=== PATIENT | female | born 1965 | race Caucasian/White ===

== ENCOUNTER → 2016-08-27 | Outpatient (CLI) | payer OTHER ==
[~2016-08-27] MED LIST: CEFTIN500 MG PO; TIROSINT112 MCG PO; TRI-LEVLEN 281 TAB PO; [UNRECOGNIZED DRUG - SUPPLY]
== END ==
LOC: COL.RAD 14:32
DX: M79.661 Pain in right lower leg (principal); M79.89 Other specified soft tissue disorders

== ENCOUNTER → 2016-11-25 | Outpatient (CLI) | payer OTHER | LOC: MC.RAD 08:35 | DX: Z12.31 Encounter for screening mammogram for malignant neoplasm of breast (principal) ==

== ENCOUNTER → 2018-02-17 | Outpatient (CLI) | payer OTHER | LOC: MC.RAD 11:38 | DX: Z12.31 Encounter for screening mammogram for malignant neoplasm of breast (principal) ==

== ENCOUNTER 2018-11-23 18:55 | Emergency (ER) | payer OTHER ==
[~2018-11-23] VITALS: Ht 165.1 cm; Wt 69.1 kg
[2018-11-23 19:00] VITALS: PULSE 105; TEMP 98.7
[2018-11-23 19:17] LABS: COLLECTION METHOD CLEAN CATCH
[2018-11-23 19:25] LABS: PH 6 (5-8); SQUAMOUS EPITHELIAL 0-2 /hpf; URINE APPEARANCE Clear; URINE BACTERIA None Seen /hpf; URINE BILIRUBIN Negative (NEGATIVE); URINE BLOOD Negative (NEGATIVE); URINE COLOR Yellow; URINE GLUCOSE 2+ (NEGATIVE); URINE KETONE 2+ (NEGATIVE); URINE LEUKOCYTE ESTERASE Negative (NEGATIVE); URINE NITRATE Negative (NEGATIVE); URINE PROTEIN(semi-quant) Negative (NEGATIVE); URINE RBC 0-2 /hpf; URINE UROBILINOGEN Negative (NEGATIVE)
== END 2018-11-23 19:30 | disposition left against medical advice (07) ==
LOC: COL.ER 18:55
PROVIDERS: Family Medicine
DX: N39.0 Urinary tract infection, site not specified (principal)

== ENCOUNTER → 2019-02-22 | Outpatient (CLI) | payer OTHER | LOC: MC.RAD 09:52 | DX: Z12.31 Encounter for screening mammogram for malignant neoplasm of breast (principal) ==

== ENCOUNTER → 2020-02-25 | Outpatient (CLI) | payer OTHER | LOC: MC.RAD 10:18 | DX: Z12.31 Encounter for screening mammogram for malignant neoplasm of breast (principal) ==

== ENCOUNTER → 2021-04-14 | Outpatient (CLI) | payer OTHER | LOC: MC.RAD 12:44 | DX: Z12.31 Encounter for screening mammogram for malignant neoplasm of breast (principal) ==

== ENCOUNTER 2021-04-16 11:00 | Outpatient (RCR) | payer OTHER | END 2021-04-17 | disposition home or self-care (01) | LOC: WSOT | DX: M25.532 Pain in left wrist (principal) ==

== ENCOUNTER 2021-06-11 10:00 | Outpatient (RCR) | payer OTHER | END 2021-06-15 | disposition home or self-care (01) | LOC: WSOT | DX: M25.532 Pain in left wrist (principal); Z98.890 Other specified postprocedural states ==

== ENCOUNTER 2021-07-13 10:00 | Outpatient (RCR) | payer OTHER | END 2021-07-16 | disposition home or self-care (01) | LOC: WSOT | DX: M25.532 Pain in left wrist (principal); Z98.890 Other specified postprocedural states ==

== ENCOUNTER 2021-08-10 13:00 | Outpatient (RCR) | payer OTHER | END 2021-08-15 | disposition home or self-care (01) | LOC: WSOT | DX: M25.532 Pain in left wrist (principal) ==

== ENCOUNTER 2021-09-07 11:00 | Outpatient (RCR) | payer OTHER | END 2021-09-15 | disposition home or self-care (01) | LOC: WSOT | DX: M25.532 Pain in left wrist (principal) ==

== ENCOUNTER 2021-09-22 12:30 | Outpatient (RCR) | payer OTHER | END 2021-10-02 11:48 | disposition home or self-care (01) | LOC: WSOT 12:30 | DX: M25.532 Pain in left wrist (principal); Z98.890 Other specified postprocedural states ==